=== PATIENT | female | born 1980 | race African-American/Black ===

== ENCOUNTER 2023-01-01 23:59 | Emergency (ER) | payer BC, MEDICAID ==
[~2023-01-01] VITALS: Ht 167.6 cm; Wt 90.9 kg
[2023-01-02] MEDS ORDERED: ACETAMINOPHEN 325 MG TAB PO ONE (00:30)
[2023-01-02] MEDS ORDERED: KETOROLAC TROMETH 30 MG/ML 1ML VIAL IV ONE (00:30)
[2023-01-02 00:48] LABS: Eosinophils # (auto) 0.4 10 ^3/uL (0-0.8); Hemoglobin 9.2 g/dL (12.2-16.2); Lymphocytes # (auto) 1.9 10 ^3/uL (0.4-5.4); Mean Corpuscular Hgb Conc. 32.7 g/dL (32.0-36.0); Monocytes # (auto) 0.5 10 ^3/uL (0-1.3); White Blood Cell 8.8 10^3/uL (4.4-10.8)
[2023-01-02 00:50] LABS: Basophils # (auto) 0.2 10 ^3/uL (0-0.2); Basophils % (auto) 2.2 % (0.0-2.0); Eosinophils % (auto) 4.3 % (0.0-7.0); Lymphocytes % (auto) 21.7 % (10.0-50.0); Mean Corpuscular Hemoglobin 25.8 pg (28.0-32.0); Monocytes % (auto) 5.5 % (0.0-12.0); Neutrophils # (auto) 5.8 10 ^3/uL (1.6-8.6); Neutrophils % (auto) 66.3 % (37.0-80.0); Nucleated Red Blood Cells % 0.1 %; Red Blood Cells 3.55 10^6/uL (4.0-5.20)
[2023-01-02 00:55] LABS: Red Cell Distribution Width 20.4 % (11.8-14.3)
[2023-01-02 01:06] LABS: Albumin 2.7 g/dL (3.4-5.0); BUN/Creatinine Ratio 12.7 (10.0-20.0); Calcium 8.4 mg/dL (8.5-10.1); Potassium 3.1 mmol/L (3.5-5.1)
[2023-01-02 01:09] LABS: Bilirubin, Total 0.4 mg/dL (0.2-1.0); Total Protein 6.4 g/dL (6.4-8.2)
[2023-01-02] MEDS ORDERED: IPRATROPIUM BROM 0.5 MG/2.5ML INH SOL NEB ONE (03:45)
[2023-01-02] MEDS ORDERED: ALBUTEROL SULF 2.5 MG/0.5ML(0.5%) NEB SOLN NEB ONE (03:45)
[2023-01-02] MEDS ORDERED: methylPREDNISolone SOD SUCC 125 MG/2 ML VL IV ONE (03:45)
[2023-01-02] MEDS ORDERED: IOHEXOL 350 MG/ML 100ML IJ ONE (05:10)
[2023-01-02] MEDS ORDERED: PRED20TA2 PO (05:12)
[2023-01-02] MEDS ORDERED: ALBUAER3 IN (05:12)
[2023-01-02 06:20] VITALS: BP 117/81
== END 2023-01-02 06:36 | disposition home or self-care (01) ==
LOC: ER 23:59
DX: J45.909 Unspecified asthma, uncomplicated (principal); G89.18 Other acute postprocedural pain; R10.84 Generalized abdominal pain; R10.2 Pelvic and perineal pain; F17.210 Nicotine dependence, cigarettes, uncomplicated
CPT/HCPCS: 36415; 71045; 71260; 74177; 80053; 83690; 83880; 84484; 84702; 85025; 85379; 86850; 86900; 86901; 87040; 87077; 87186; 93005; 94640; 96374; 96375; 99285; J1885; J2930; J7644; Q9967